=== PATIENT | female | born 1965 | race Caucasian/White ===

== ENCOUNTER 2017-11-18 12:22 | Emergency (ER) | payer SELFPAY ==
[~2017-11-18] VITALS: Ht 157.5 cm; Wt 81.4 kg
[~2017-11-18 12:22] MED LIST: NOCURR
[2017-11-18] MEDS ORDERED: IBUPROFEN 600 MG TABLET PO ONE (14:00)
[2017-11-18] MEDS ORDERED: LIDOCAINE HCL 5% TRANSDERMAL PATCH TD ONE (14:00)
[2017-11-18 15:52] VITALS: BP 142/80
== END 2017-11-18 15:53 | disposition home or self-care (01) ==
LOC: EMS 12:22
DX: S13.8XXA Sprain of joints and ligaments of other parts of neck, initial encounter (principal); V49.49XA Driver injured in collision with other motor vehicles in traffic accident, initial encounter; Y93.89 Activity, other specified; Y92.488 Other paved roadways as the place of occurrence of the external cause; Y99.8 Other external cause status
CPT/HCPCS: 99283